=== PATIENT | male | born 1965 | race African-American/Black ===

== ENCOUNTER 2017-06-20 05:54 | Emergency (ER) | payer OTHER ==
[~2017-06-20] VITALS: Ht 175.3 cm; Wt 99.8 kg
--- NOTE | ~2017-06-20 | EKG ---
[place] [address] [facility] [place] [address] ELECTROCARDIOGRAM REPORT Name: YAN DOWNEY Room #: REG MAGAN Puentes#: [id number] Admission: 06/20/17 Attend Phys: Discharge: Date of : 65 Report #: [id number] THIS REPORT FOR: //name// [facility] ED Test Date: 2017-06-20 Test Time: 06:08:25 Pat Name: YAN DOWNEY Department: Room: Gender: [employer] Operator: sourav : 1965 Requested By: Nevaeh Ramirez Order Number: [id number] MD: Natan Snyder Measurements Intervals [place] Rate: 82 P: 60 AL: 151 QRS: -14 QRSD: 94 T: -1 QT: 374 QTc: 437 Interpretive Statements Sinus rhythm Borderline T wave abnormalities No previous ECG available for comparison Electronically Signed On 06-20-2017 8:43:07 APPLICATIONS SYSTEM ANALYST by Natan Snyder [email or web address] <ELECTRONICALLY SIGNED> By: Natan Snyder MD, [facility] 06/20/17 [id number] [id number] Natan Snyder MD, FACC /EPI
[2017-06-20 06:18] LABS: ABSOLUTE NEUTROPHILS 7.8 thou/uL (1.4-8.2); BASOPHILS 0.9 % (0.0-2.0); EOSINOPHILS 0.3 % (0.0-3.0); HEMATOCRIT 40.4 % (42.0-52.0); HEMOGLOBIN 13.6 gm/dL (14.0-18.0); LYMPHOCYTES 33.4 % (24.0-44.0); MCH 31.2 pg (26.0-34.0); MCHC 33.6 g/dL (28.0-37.0); MCV 92.7 fL (80.0-100.0); MONOCYTES 7.6 % (1.0-8.0); PLATELET COUNT 251 thou/uL (150-400); POLYS 57.8 % (36.0-66.0); RBC 4.36 mil/uL (4.50-6.00); RDW 14.4 % (10.5-14.5); WBC 13.4 thou/uL (4.0-11.0)
[2017-06-20 06:24] LABS: ANION GAP 16 mmol/L (7-16); BUN 19 mg/dL (7-18); CHLORIDE 104 mmol/L (98-107); CO2 21 mmol/L (21-32); CREATININE 1.6 mg/dL (0.7-1.3); GLUCOSE 149 mg/dL (74-106); SODIUM 141 mmol/L (136-145)
[2017-06-20 06:26] LABS: POTASSIUM 3.8 mmol/L (3.5-5.1)
[2017-06-20 06:29] LABS: ALBUMIN 3.6 g/dL (3.4-5.0); DIRECT BILIRUBIN < 0.1 mg/dL (<0.1-0.3); LIPASE 139 U/L (73-393); SGOT 39 U/L (15-37); SGPT 52 U/L (30-65); TOTAL BILIRUBIN 0.5 mg/dL (<0.1-1.0); TOTAL PROTEIN 7.4 g/dL (6.4-8.2)
[2017-06-20 06:52] LABS: APTT 20.6 Seconds (24.5-32.8); PROTIME 10.3 Seconds (9.3-11.4)
[2017-06-20 08:04] LABS: URINE BILIRUBIN NEGATIVE (Negative); URINE BLOOD TRACE (Negative); URINE CLARITY CLEAR; URINE COLOR YELLOW; URINE GLUCOSE-RANDOM* NEGATIVE (Negative); URINE KETONES NEGATIVE (Negative); URINE LEUKOCYTES NEGATIVE (Negative); URINE NITRITE NEGATIVE (Negative); URINE PROTEIN (DIPSTICK) NEGATIVE (Negative); URINE UROBILINOGEN 0.2 E.U./dl (0.2-1.0)
[2017-06-20 08:13] LABS: AMP/METHAMP Negative (Negative); BARBITURATES Negative (Negative); BENZODIAZEPINES Negative (Negative); COCAINE Negative (Negative); METHADONE Negative (Negative); OPIATES POSITIVE (Negative); PCP Negative (Negative)
[2017-06-20] MEDS ORDERED: TRAMADOL 50 MG50 MG PO (08:16)
[2017-06-20] MEDS ORDERED: TORADOL 10 MG T10 MG PO (08:16)
[2017-06-20] MEDS ORDERED: FLOMAX0.4 MG PO (08:16)
== END 2017-06-20 08:45 | disposition home or self-care (01) ==
LOC: ER 05:54
PROVIDERS: Emergency Medicine
DX: N20.1 Calculus of ureter (principal); K21.9 Gastro-esophageal reflux disease without esophagitis